=== PATIENT | male | born 1975 | race Caucasian/White ===

== ENCOUNTER 2020-06-15 19:08 | Emergency (ER) | payer SELFPAY ==
[~2020-06-15] VITALS: Ht 182.9 cm; Wt 81.6 kg
[2020-06-15 19:12] VITALS: BP 121/90
[2020-06-15] MEDS ORDERED: MORPHINE SULFATE 2 MG/ML SYR IM ONE (19:30)
[2020-06-15] MEDS ORDERED: AZITHROMYCIN 250 MG TAB PO ONE (20:50)
[2020-06-15] MEDS ORDERED: cefTRIAXone 250 MG in LIDOCAINE MPF 1% 0.9 ML IM ONE (20:50)
[2020-06-15] MEDS ORDERED: LIDOCAINE MPF 1% 5 ML ONE (20:57)
[2020-06-15] MEDS ORDERED: cefTRIAXone 250 MG VIAL ONE (20:57)
[2020-06-15 21:16] VITALS: BP 121/90
== END 2020-06-15 21:16 | disposition home or self-care (01) ==
LOC: MED 19:08
DX: N45.2 Orchitis (principal)
CPT/HCPCS: 76870; 96372; 99284; J0696; J2001; J2270; Q0092; 99283